=== PATIENT | male | born 1980 | race Caucasian/White ===

== ENCOUNTER 2022-02-05 15:43 | Inpatient (IN) | payer SELFPAY ==
[~2022-02-05] VITALS: Ht 162 cm; Wt 96.6 kg
[~2022-02-05 15:43] MED LIST: METO50TA2 PO
--- NOTE | 2022-02-05 15:47 | ED General ---
General Stated Complaint: RT RIB PAIN History of Present Illness Date Seen by Provider: Feb 05, 2022 Time Seen by Provider: 15:47 Initial Comments 41-year-old male presents with known influenza. Patient reports that last night he had pain in his right ribs especially with deep breath after using a spirometer. Patient went to urgent care they felt his oxygen was low and wanted him sent to the ER for further evaluation. Patient denies any fever or chills at this time. He does have some mild shortness of breath. No report of any nausea or vomiting or diarrhea at this time. He does have a lot of generalized malaise and body aches. Allergies and Home Medications Allergies Coded Allergies: No Known Drug Allergies (Unverified , 09/01/14) Patient Home Medication List Home Medication List Reviewed: Yes Metoprolol Tartrate (Metoprolol Tartrate) 50 Mg Tablet, 50 MG PO BID Prescribed by: DAYNE LIU on 09/01/14 1640 Review of Systems Review of Systems Constitutional: No fever; malaise EENTM: no symptoms reported Respiratory: see HPI, cough, short of breath Cardiovascular: see HPI; No palpitations, No syncope Gastrointestinal: No abdominal pain, No vomiting Genitourinary: no symptoms reported Musculoskeletal: see HPI Psychiatric/Neurological: No Symptoms Reported Past [id number]-[id number] Hx Past Medical History Reproductive Disorders: No Sexually Transmitted Disease: No HIV/AIDS: No Family Medical History No Pertinent Family Hx Physical Exam Vital Signs Vital Signs - First Documented 02/05/22 16:01 Temp 37.5 Pulse 114 Resp 22 B/P (MAP) 133/88 (103) Pulse Ox 95 O2 Delivery Room Air Capillary Refill : Height, Weight, BMI Height: 5'9" Weight: 170lbs. oz. 77.966975fu; BMI Method: General Appearance: No Apparent Distress, WD/WN Respiratory: No Accessory Muscle Use, No Respiratory Distress, Decreased Breath Sounds (mild decreased air movement) Cardiovascular: Normal Peripheral Pulses, Tachycardia Gastrointestinal: Non Tender, Soft Extremity: Normal Capillary Refill, Normal Inspection Neurologic/Psychiatric: Alert, Oriented x3, No Motor/Sensory Deficits, Normal Mood/Affect Skin: Normal Color, Warm/Dry Focused Exam Lactate Level 02/05/22 16:35: Lactic Acid Level 1.54 Lactic Acid Level Laboratory Tests Test 02/05/22 16:35 Lactic Acid Level 1.54 MMOL/L (0.50-2.00) Progress/Results/Core Measures Suspected Sepsis SIRS Temperature: Pulse: Respiratory Rate: Laboratory Tests 02/05/22 15:58: White Blood Count 28.0H Blood Pressure / Mean: 02/05/22 16:35: Lactic Acid Level 1.54 Laboratory Tests 02/05/22 15:58: Creatinine 0.94, Platelet Count 348, Total Bilirubin 1.0 Results/Orders Lab Results Laboratory Tests Test 02/05/22 15:58 02/05/22 16:35 Range/Units White Blood Count 28.0 H 4.3-11.0 10^3/uL Red Blood Count 5.00 4.30-5.52 10^6/uL Hemoglobin 14.8 13.3-17.7 g/dL Hematocrit 42 40-54 % Mean Corpuscular Volume 85 80-99 fL Mean Corpuscular Hemoglobin 30 25-34 pg Mean Corpuscular Hemoglobin Concent 35 32-36 g/dL Red Cell Distribution Width 12.7 10.0-14.5 % Platelet Count 348 130-400 10^3/uL Mean Platelet Volume 9.9 9.0-12.2 fL Immature Granulocyte % (Auto) 3 % Neutrophils (%) (Auto) 80 H 42-75 % Lymphocytes (%) (Auto) 12 12-44 % Monocytes (%) (Auto) 4 0-12 % Eosinophils (%) (Auto) 0 0-10 % Basophils (%) (Auto) 1 0-10 % Neutrophils # (Auto) 22.3 H 1.8-7.8 10^3/uL Lymphocytes # (Auto) 3.4 1.0-4.0 10^3/uL Monocytes # (Auto) 1.2 H 0.0-1.0 10^3/uL Eosinophils # (Auto) 0.0 0.0-0.3 10^3/uL Basophils # (Auto) 0.1 0.0-0.1 10^3/uL Immature Granulocyte # (Auto) 0.9 H 0.0-0.1 10^3/uL Neutrophils % (Manual) 80 % Lymphocytes % (Manual) 4 % Monocytes % (Manual) 16 % D-Dimer 3.38 H 0.00-0.49 UG/ML Sodium Level 127 L 135-145 MMOL/L Potassium Level 3.2 L 3.6-5.0 MMOL/L Chloride Level 88 L 98-107 MMOL/L Carbon Dioxide Level 25 21-32 MMOL/L Anion Gap 14 5-14 MMOL/L Blood Urea Nitrogen 10 7-18 MG/DL Creatinine 0.94 0.60-1.30 MG/DL Estimat Glomerular Filtration Rate 105 BUN/Creatinine Ratio 11 Glucose Level 131 H 70-105 MG/DL Calcium Level 9.2 8.5-10.1 MG/DL Corrected Calcium 9.5 8.5-10.1 MG/DL Magnesium Level 2.0 1.6-2.4 MG/DL Total Bilirubin 1.0 0.1-1.0 MG/DL Aspartate Amino Transf (AST/SGOT) 18 5-34 U/L Alanine Aminotransferase (ALT/SGPT) 12 0-55 U/L Alkaline Phosphatase 127 40-136 U/L Troponin I < 0.30 <0.30 NG/ML C-Reactive Protein 48.49 H <0.50 MG/DL Total Protein 8.1 6.4-8.2 GM/DL Albumin 3.6 3.2-4.5 GM/DL Lactic Acid Level 1.54 0.50-2.00 MMOL/L My Orders Orders - NULL,BRIE L DO Chest Pa/Lat (2 View) (02/05/22 15:51) Cbc No Diff (02/05/22 15:51) Cbc With Automated Diff (02/05/22 15:51) Magnesium (02/05/22 15:51) Crp Fs (02/05/22 15:51) Troponin I Fs (02/05/22 15:51) Ketorolac Injection (Toradol Injection) (02/05/22 15:51) Albuterol/Ipra Inhalation Soln (Duoneb I (02/05/22 16:00) Svn Small Volume Nebulizer (02/05/22 15:51) Fibrin Degradation Products (02/05/22 15:51) Manual Differential (02/05/22 15:58) Comprehensive Metabolic Panel (02/05/22 16:27) Ct Angio Chest W (02/05/22 16:28) Lactic Acid Analyzer (02/05/22 16:29) Cefepime Injection (Maxipime Injection) (02/05/22 16:30) Iohexol Injection (Omnipaque 350 Mg/Ml 1 (02/05/22 16:30) Received Contrast (Hold Metformin- Contr (02/05/22 16:30) Sodium Chloride Flush (Catheter Flush Sy (02/05/22 16:30) Ns (Ivpb) (Sodium Chloride 0.9% Ivpb Bag (02/05/22 16:30) Ns Iv 1000 Ml (Sodium Chloride 0.9%) (02/05/22 16:39) Enoxaparin Injection (Lovenox Injection) (02/05/22 17:15) Vancomycin Injection (Vancomycin Injecti (02/05/22 17:15) Ed Admission (Communication) (02/05/22 17:40) Ibuprofen Tablet (Motrin Tablet) (02/05/22 17:45) Medications Given in ED Current Medications Medications Dose Ordered Sig/Melida Route Start Time Stop Time Status Last Admin Dose Admin Albuterol/ Ipratropium 3 ml ONCE ONCE INH 02/05/22 16:00 02/05/22 16:01 DC 02/05/22 15:57 3 ML Cefepime HCl 1000 mg/Sodium Chloride 50 ml @ 100 mls/hr ONCE ONCE IV 02/05/22 16:30 02/05/22 16:59 DC 02/05/22 16:47 100 MLS/HR Enoxaparin Sodium 90 mg ONCE ONCE SC 02/05/22 17:15 02/05/22 17:16 DC 02/05/22 17:48 90 MG Ibuprofen 400 mg ONCE ONCE PO 02/05/22 17:45 02/05/22 17:46 DC 02/05/22 17:48 400 MG Iohexol 75 ml ONCE ONCE IV 02/05/22 16:30 02/05/22 16:34 DC 02/05/22 16:49 80 ML Sodium Chloride 10 ml NEEDED PRN IV 02/05/22 16:30 02/05/22 16:49 10 ML Sodium Chloride 100 ml ONCE ONCE IV 02/05/22 16:30 02/05/22 16:34 DC 02/05/22 16:49 80 ML Vancomycin HCl 1500 mg/Sodium Chloride 500 ml @ 257.5 mls/ hr ONCE ONCE IV 02/05/22 17:15 02/05/22 19:11 02/05/22 17:49 257.5 MLS/HR Vital Signs/I&O 02/05/22 02/05/22 16:01 17:12 Temp 37.5 37.5 Pulse 114 117 Resp 22 20 B/P (MAP) 133/88 (103) 144/88 Pulse Ox 95 94 O2 Delivery Room Air Room Air Capillary Refill : Progress Note : Progress Note Patient with right upper lobe pneumonia with questionable pulmonary embolism. Patient started on cefepime, we will add vancomycin. Patient is given Lovenox weight-based subcu. Patient to be admitted to [facility] ICU Dr. Sheldon with Dr. Gottlieb consult with concerns of possible empyema. Patient's vital signs are stable. He transferred via EMS. Diagnostic Imaging Diagonstic Imaging: CT Plain Films/CT/US/NM/MRI: chest Comments Date of Exam:02/05/22 CT ANGIO CHEST W PROCEDURE: CT angiography of the chest. TECHNIQUE: After intravenous administration of contrast, thin section axial CT angiography of the chest was performed. 3D MIP reconstructions were made. All CT scans use one or more of the following dose optimizing techniques: automated exposure control, MA and/or KvP adjustment based on patient size and exam type or iterative reconstruction. INDICATION: Dyspnea. COMPARISON: Chest radiograph of earlier the same day. FINDINGS: Vasculature: Suboptimal opacification of the pulmonary arteries is present. Allowing for this, there is potential filling defect in the left lower lobe segmental pulmonary artery. Thoracic aorta is normal in caliber. No aortic dissection or pseudoaneurysm. Heart and mediastinum: Visualized thyroid is normal. No supraclavicular, axillary or intra-thoracic lymphadenopathy. The heart is normal in size without pericardial effusion. Pleura: Small right pleural effusion is partially loculated. No pneumothorax. Lungs and airway: No endoluminal lesion in the trachea or central bronchi. Near total consolidation of the right upper lobe. Multifocal nodular consolidations in the periphery of the left upper lobe. Upper abdomen: Allowing for the phase of contrast, no acute abnormality in the upper abdomen is seen. Musculoskeletal: No concerning osseous lesion. IMPRESSION: 1. Suboptimal opacification of the pulmonary arteries, likely due to patient taking a deep breath/Valsalva at the time of scanning. Allowing for this, there is question of left lower lobe acute pulmonary emboli. 2. Multifocal pneumonia with near total consolidation of the right upper lobe. Advise followup PA and lateral chest radiographs in 4 weeks after appropriate medical management to ensure resolution. 3. Small right pleural effusion is partially loculated. This is likely parapneumonic in nature. Diagonstic Imaging: Xray Plain Films/CT/US/NM/MRI: chest Comments Date of Exam:02/05/22 CHEST PA/LAT (2 VIEW) Chest PA/LAT (2 view) Indication: Right rib pain. Comparison: 09/01/2014. Findings: Right upper lobe confluent consolidation. Subpleural nodular opacity in the left lung. Small right pleural effusion. Normal heart size and mediastinal contours. Impression: 1. Right upper lobe pneumonia. Advise followup PA and lateral chest radiographs in 4 weeks after appropriate medical management to ensure resolution. 2. Left upper lung zone nodular opacity could be a focus of infection. Attention on follow-up. Departure Impression Primary Impression: Pneumonia Qualified Codes: J18.9 - Pneumonia, unspecified organism Disposition: 30 STILL A PATIENT Condition: Stable Departure-Patient Inst. Referrals: DAPHNE CHOI (PCP) Primary Care Physician GORDON VILLATORO MD (Family) Primary Care Physician BRIE NULL DO Feb 05, 2022 15:47
[2022-02-05] MEDS ORDERED: KETOROLAC 30 MG/ML VIAL IVP STA (15:51)
[2022-02-05 15:58] LABS: BASOPHILS # (AUTO) 0.1 10^3/uL (0.0-0.1); BASOPHILS % (AUTO) 1 % (0-10); EOSINOPHILS % (AUTO) 0 % (0-10); HEMATOCRIT 42 % (40-54); HEMOGLOBIN 14.8 g/dL (13.3-17.7); LYMPHOCYTES # (AUTO) 3.4 10^3/uL (1.0-4.0); LYMPHOCYTES % (AUTO) 12 % (12-44); MEAN CORPUSCULAR HEMOGLOBIN 30 pg (25-34); MEAN CORPUSCULAR HGB CONC 35 g/dL (32-36); MEAN CORPUSCULAR VOLUME 85 fL (80-99); MEAN PLATELET VOLUME 9.9 fL (9.0-12.2); MONOCYTES # (AUTO) 1.2 10^3/uL (0.0-1.0); MONOCYTES % (AUTO) 4 % (0-12); NEUTROPHILS # (AUTO) 22.3 10^3/uL (1.8-7.8); NEUTROPHILS % (AUTO) 80 % (42-75); PLATELET COUNT 348 10^3/uL (130-400)
[2022-02-05] MEDS ORDERED: RT-ALBUTEROL/IPRATROPIUM 3 ML (DUONEB) VIAL INH ONE (16:00)
[2022-02-05 16:23] LABS: LYMPHOCYTES % (MANUAL) 4 %; MONOCYTES % (MANUAL) 16 %; NEUTROPHILS % (MANUAL) 80 %
[2022-02-05 16:30] LABS: ALBUMIN 3.6 GM/DL (3.2-4.5); CALCIUM 9.2 MG/DL (8.5-10.1); CREATININE SERUM 0.94 MG/DL (0.60-1.30); POTASSIUM 3.2 MMOL/L (3.6-5.0); TOTAL PROTEIN 8.1 GM/DL (6.4-8.2)
[2022-02-05] MEDS ORDERED: CATHETER FLUSH 10 ML SYR IV PRN (16:30)
[2022-02-05] MEDS ORDERED: CEFEPIME INJECTION 1,000 MG in NS (IVPB) 50 ML IV ONE (16:30)
[2022-02-05] MEDS ORDERED: NS 100 ML (IVPB) BAG IV ONE (16:30)
[2022-02-05] MEDS ORDERED: HOLD METFORMIN - RECEIVED CONTRAST 20 ML VIAL IV SCH (16:30)
[2022-02-05] MEDS ORDERED: IOHEXOL 350 MG/ML 100 ML (OMNIPAQUE 350) VIAL IV ONE (16:30)
--- NOTE | 2022-02-05 16:32 | Diagnostic Imaging Report ---
Chest PA/LAT (2 view) Indication: Right rib pain. Comparison: 09/01/2014. Findings: Right upper lobe confluent consolidation. Subpleural nodular opacity in the left lung. Small right pleural effusion. Normal heart size and mediastinal contours. Impression: 1. Right upper lobe pneumonia. Advise followup PA and lateral chest radiographs in 4 weeks after appropriate medical management to ensure resolution. 2. Left upper lung zone nodular opacity could be a focus of infection. Attention on follow-up. Dictated by: Dictated on workstation # [id number]
[2022-02-05] MEDS ORDERED: NS IV 1000 ML 1,000 ML IV STA ×2 (16:39→18:00)
--- NOTE | 2022-02-05 16:59 | Diagnostic Imaging Report ---
PROCEDURE: CT angiography of the chest. TECHNIQUE: After intravenous administration of contrast, thin section axial CT angiography of the chest was performed. 3D MIP reconstructions were made. All CT scans use one or more of the following dose optimizing techniques: automated exposure control, MA and/or KvP adjustment based on patient size and exam type or iterative reconstruction. INDICATION: Dyspnea. COMPARISON: Chest radiograph of earlier the same day. FINDINGS: Vasculature: Suboptimal opacification of the pulmonary arteries is present. Allowing for this, there is potential filling defect in the left lower lobe segmental pulmonary artery. Thoracic aorta is normal in caliber. No aortic dissection or pseudoaneurysm. Heart and mediastinum: Visualized thyroid is normal. No supraclavicular, axillary or intra-thoracic lymphadenopathy. The heart is normal in size without pericardial effusion. Pleura: Small right pleural effusion is partially loculated. No pneumothorax. Lungs and airway: No endoluminal lesion in the trachea or central bronchi. Near total consolidation of the right upper lobe. Multifocal nodular consolidations in the periphery of the left upper lobe. Upper abdomen: Allowing for the phase of contrast, no acute abnormality in the upper abdomen is seen. Musculoskeletal: No concerning osseous lesion. IMPRESSION: 1. Suboptimal opacification of the pulmonary arteries, likely due to patient taking a deep breath/Valsalva at the time of scanning. Allowing for this, there is question of left lower lobe acute pulmonary emboli. 2. Multifocal pneumonia with near total consolidation of the right upper lobe. Advise followup PA and lateral chest radiographs in 4 weeks after appropriate medical management to ensure resolution. 3. Small right pleural effusion is partially loculated. This is likely parapneumonic in nature. Dictated by: Dictated on workstation # [id number]
[2022-02-05] MEDS ORDERED: VANCOMYCIN INJECTION 1,500 MG in NS IV 500 ML 500 ML IV ONE (17:15)
[2022-02-05] MEDS ORDERED: ENOXAPARIN 100 MG/1 ML (LOVENOX) SYR SC ONE (17:15)
[2022-02-05] MEDS ORDERED: IBUPROFEN TABLET 200 MG TAB PO ONE (17:45)
[2022-02-05 20:30] VITALS: BP 144/88
[2022-02-05] MEDS ORDERED: MELATONIN 3 MG TABLET PO PRN (20:30)
[2022-02-05] MEDS ORDERED: BISACODYL 10 MG SUPP (DULCOLAX) PR PRN (20:30)
[2022-02-05] MEDS ORDERED: diphenhydrAMINE 50 MG/ML INJ (BENADRYL) IVP PRN (20:30)
[2022-02-05] MEDS ORDERED: VANCOMYCIN INJECTION 0.1 MG in NS (IVPB) 250 ML IV SCH (20:30)
[2022-02-05] MEDS ORDERED: NS IV 500 ML 500 ML IV PRN (20:30)
[2022-02-05] MEDS ORDERED: diphenhydrAMINE 25 MG TAB (BENADRYL) PO PRN (20:30)
[2022-02-05] MEDS ORDERED: ONDANSETRON 4 MG/2 ML (SDV) Z0FRAN IV PRN (20:30)
[2022-02-05] MEDS ORDERED: polyethylene glycoL POWDER 17 GM (MIRALAX) PACK PO PRN (20:30)
[2022-02-05] MEDS ORDERED: morphine INJ 4 MG/ML 1 ML (VIAL/SYRINGE) IV PRN (20:30)
[2022-02-05] MEDS ORDERED: ENOXAPARIN 40 MG/0.4 ML (LOVENOX) SYR SC SCH (20:30)
[2022-02-05] MEDS ORDERED: ANTACID SUSP 30 ML UDC (MYLANTA) PO PRN (20:30)
[2022-02-05] MEDS ORDERED: ONDANSETRON 4 MG (ZOFRAN) ORAL DISSOLVE TAB PO PRN (20:30)
[2022-02-05] MEDS: DOCUSATE SODIUM 100 MG (COLACE) CAP PO SCH (20:37)
--- NOTE | 2022-02-05 21:23 | Tele-ICU Progress Note ---
Progress Note 41M with flu admitted with pneumonia, possible empyema and questionable PE. CTA completed with complete consolidation of RUL and possible loculated effusion. Possible PE but suboptimal exam secondary to inspiratory effort. Has been initiated on cefepime and vano for pneumonia. Therapuetic lovenox for possible PE. On my review of the CT, there does not appear to be an adequate fluid sample for either diagnostic or therapuetic drainage at this time. Focused Exam Lactate Level 02/05/22 16:35: Lactic Acid Level 1.54 02/05/22 20:39: Lactic Acid Level 1.10 Height, Weight, BMI Height: 5'9" Weight: 170lbs. oz. 77.533098tv; 35.39 BMI Method: Lactic Acid Level Laboratory Tests Test 02/05/22 20:39 Lactic Acid Level 1.10 MMOL/L (0.50-2.00) GEN LIMA MD Feb 05, 2022 21:23
[2022-02-05] MEDS ORDERED: VANCOMYCIN 500 MG/NS 100 ML IV ONE ×2 (23:00)
[2022-02-06] MEDS: CEFEPIME INJECTION 1,000 MG in NS (IVPB) 50 ML IV SCH ×5 (01:07→23:17)
[2022-02-06 04:31] LABS: BASOPHILS # (AUTO) 0.1 10^3/uL (0.0-0.1); BASOPHILS % (AUTO) 1 % (0-10); EOSINOPHILS % (AUTO) 0 % (0-10); HEMATOCRIT 37 % (40-54); HEMOGLOBIN 12.7 g/dL (13.3-17.7); LYMPHOCYTES # (AUTO) 1.3 10^3/uL (1.0-4.0); LYMPHOCYTES % (AUTO) 5 % (12-44); MEAN CORPUSCULAR HEMOGLOBIN 30 pg (25-34); MEAN CORPUSCULAR HGB CONC 34 g/dL (32-36); MEAN CORPUSCULAR VOLUME 86 fL (80-99); MEAN PLATELET VOLUME 9.9 fL (9.0-12.2); MONOCYTES # (AUTO) 2.7 10^3/uL (0.0-1.0); MONOCYTES % (AUTO) 11 % (0-12); NEUTROPHILS # (AUTO) 19.6 10^3/uL (1.8-7.8); NEUTROPHILS % (AUTO) 79 % (42-75); PLATELET COUNT 335 10^3/uL (130-400)
[2022-02-06 04:53] LABS: BILIRUBIN,TOTAL 1.1 MG/DL (0.1-1.0); CALCIUM 8.7 MG/DL (8.5-10.1); CREATININE SERUM 0.82 MG/DL (0.60-1.30); MAGNESIUM 1.9 MG/DL (1.6-2.4); PHOSPHORUS 2.1 MG/DL (2.3-4.7); POTASSIUM 3.4 MMOL/L (3.6-5.0); TOTAL PROTEIN 6.5 GM/DL (6.4-8.2)
[2022-02-06] MEDS: KCL 20 MEQ TAB (K-DUR) PO SCH (05:08)
[2022-02-06] MEDS ORDERED: KCL 20 MEQ TAB (K-DUR) PO ONE (05:15)
[2022-02-06] MEDS: NS IV 1000 ML 1,000 ML IV SCH ×3 (05:24→17:47)
[2022-02-06 05:43] LABS: ABG BASE EXCESS -3.1 MMOL/L (-2.5-2.5); ABG OXYGEN SATURATION 94 % (94-100); ABG PCO2 30 MMHG (35-45); ABG PH 7.44 (7.37-7.43); ABG PO2 61 MMHG (79-93); ABG TCO2 21.4 MMOL/L (21.0-31.0); ALLENS TEST YES-POS; INSPIRED O2 2L; PATIENT TEMP 36.6; VENTILATOR NO
[2022-02-06] MEDS ORDERED: POTASSIUM CL 10MEQ/50ML IVPB 50 ML IV SCH (06:00)
[2022-02-06] MEDS ORDERED: MAGNESIUM 1 GM/100 ML IVPB 100 ML IV SCH (06:00)
[2022-02-06] MEDS ORDERED: METO100T12 PO ×2 (08:11→11:48)
[2022-02-06] MEDS ORDERED: VANCOMYCIN INJECTION 0.1 MG in NS (IVPB) 250 ML IV SCH (09:00)
--- NOTE | 2022-02-06 09:21 | Tele-ICU Progress Note ---
Subjective Date Seen by a Provider: Feb 06, 2022 Time Seen by a Provider: 09:21 Subjective/Events-last exam (Tele-ICU Physician , consultation) Available chart/ vitals / labs / Images reviewed H&P is from ER notes Patient's information available about PMH, allergy reviewed in EMR. ROS as per chart and RN report Video assessment done using teleICU camera, rest of exam as per RN Discussed with RN. Is a 41-year-old male with past medical history of for hypertension under pneumonia in the remote past admitted with shortness of breath right-sided rib pain and racing heart. He is evaluated in the emergency room with a CT angiogram of the chest which is somewhat suboptimal however it showed ques tionable left lower lobe pulmonary embolus, right upper lobe dense consolidation. Patient recently tested positive for influenza on 02/02/2022 but it is not clear whether he is started on Tamiflu or not. At this time it is too late to start on Tamiflu. Currently he is being treated with vancomycin and cefepime. I have added doxycycline to cover atypical organisms. Impression 1. Influenza infection 2. Right upper lobe pneumonia. We need to consider both gram-negative's as well as Staph aureus infection in addition to atypicals. 3. Possible pulmonary embolism 4. Tachycardia and hypertension. Recommendations 1. Continue cefepime and vancomycin. 2. We will check a PCR for MRSA with nasal swab 3. Start on her doxycycline 100 mg IV piggyback twice a day 4. Suggest full dose anticoagulation and suggest to get a venous Dopplers of the legs. 5. Continue his beta-westley and see the response. Sepsis Event Evaluation Height, Weight, BMI Height: 5'9" Weight: 170lbs. oz. 77.417759lb; 35.39 BMI Method: Focused Exam Lactate Level 02/05/22 16:35: Lactic Acid Level 1.54 02/05/22 20:39: Lactic Acid Level 1.10 Exam Exam Patient acknowledged, consented, and participated in this virtual visit which was conducted using real time audio/video Vital Signs Date Time Temp Pulse Resp B/P (MAP) Pulse Ox O2 Delivery O2 Flow Rate FiO2 02/06/22 08:00 36.8 02/06/22 07:46 142 02/06/22 06:00 117 23 144/87 (106) 93 Nasal Cannula 2.00 02/06/22 05:00 111 23 140/91 (107) 93 Nasal Cannula 2.00 02/06/22 04:00 95 23 138/88 (105) 94 Nasal Cannula 2.00 02/06/22 04:00 95 Nasal Cannula 2.00 02/06/22 03:00 101 22 124/84 (97) 93 Nasal Cannula 2.00 02/06/22 02:00 99 19 130/77 (94) 96 Nasal Cannula 2.00 02/06/22 01:05 Nasal Cannula 2.00 02/06/22 01:00 94 02/06/22 01:00 96 17 120/84 (96) 96 Room Air 02/06/22 00:16 36.8 104 24 121/76 (91) 94 Room Air 02/06/22 00:00 98 26 93 Room Air 02/05/22 23:30 93 Room Air 02/05/22 23:00 102 19 121/76 (91) 92 Room Air 02/05/22 21:45 112 27 93 Room Air 02/05/22 21:31 114 02/05/22 21:15 130 23 94 Room Air 02/05/22 20:45 112 95 Room Air 02/05/22 20:30 112 93 Room Air 02/05/22 20:30 114 95 21 02/05/22 20:16 95 Room Air 02/05/22 20:15 118 131/86 (101) 94 Room Air 02/05/22 20:01 36.6 115 28 131/84 (100) 95 Room Air 02/05/22 17:12 37.5 117 20 144/88 94 Room Air 02/05/22 16:01 37.5 114 22 133/88 (103) 95 Room Air I & O 02/06/22 07:00 Intake Total 3550 ml Output Total 900 ml Balance 2650 ml Height & Weight Height: 5'9" Weight: 170lbs. oz. 77.370300xk; 35.39 BMI Method: General Appearance: No Apparent Distress, WD/WN Respiratory: No Accessory Muscle Use, No Respiratory Distress, Decreased Breath Sounds (mild decreased air movement) Cardiovascular: Normal Peripheral Pulses, Tachycardia Capillary Refill: Less Than 3 Seconds Extremity: Normal Capillary Refill, Normal Inspection Neurologic/Psychiatric: Alert, Oriented x3, No Motor/Sensory Deficits, Normal Mood/Affect Skin: Normal Color, Warm/Dry Results Lab Laboratory Tests 12/4/22 15:58 02/06/22 04:15 Assessment/Plan Assessment/Plan ABOVE Critical Care: Critically Ill Patient Time spent with patient (mins): 25 CHETNA CRUZ MD Feb 06, 2022 09:21
[2022-02-06] MEDS: DOXYCYCLINE INJECTION 100 MG in NS (IVPB) 100 ML IV SCH ×2 (09:38→20:29)
[2022-02-06] MEDS: DOCUSATE SODIUM 100 MG (COLACE) CAP PO SCH ×2 (09:38→19:30)
[2022-02-06] MEDS: VANCOMYCIN 1500 MG/NS 500 ML IVPB IV SCH ×4 (09:54→18:44)
[2022-02-06] MEDS: ENOXAPARIN 100 MG/1 ML (LOVENOX) SYR SC SCH ×2 (11:24→23:17)
[2022-02-06] MEDS: ALPRAZolam 0.5 MG (XANAX) TAB PO PRN (11:33)
[2022-02-06] MEDS ORDERED: ACET-2267 PO (11:46)
[2022-02-06] MEDS ORDERED: IBUP-2473 PO (11:46)
[2022-02-06] MEDS ORDERED: NON-FORMULARY MEDICATION 1 EA EA (Metoprolol Tartrate 100 MG) PO SCH (12:45)
[2022-02-06] MEDS: meTOprolol TARTRATE 50 MG (LOPRESSOR) TAB PO SCH ×2 (13:03→19:30)
--- NOTE | 2022-02-06 13:34 | History & Physical ---
KIZZY CLARKE 02/06/22 1334: HPI History of Present Illness: 41 yo M with known influenza admitted on 02/05 for pneumonia, empyema and possible PE after an ER visit for shortness of breath and right sided rib pain with inspiration the day prior. He says that tested positive for influenza on 02/02 though he began feeling sick on 01/26. Today he reports decreased SOB describing "deeper,slower breaths" but notes his breathing is not entirely back to normal. He continues to have right sided lower rib pain at the tail end of inspiration but to a lesser degree than yesterday. He complains of anxiety and restless that he attributes to a "racing heart rate" and believes his current metoprolol dose to be lower than his at home dose. Otherwise no complaints at this time. He denies chest pain, dizziness or GI disturbances. Other pertinent medical history includes bilateral pneumonia 15 years ago and hypertension. Attending Physician Cassidy Lee PCP Admitting Physician: Freda Miller MD Attending Physician: Felipe Louise MD Consult Date of Admission Feb 05, 2022 at 19:58 Home Medications Home Medications Metoprolol Tartrate 50 mg bid. Reviewed patient Home Medication Reconciliation performed by pharmacy medication reconciliations industrial ecology technician and/or nursing. Patients Allergies have been reviewed. Allergies Coded Allergies: No Known Drug Allergies (Unverified , 09/01/14) [id number] Hx Patient Social History Marrital Status: Alcohol Use?: No Have you traveled recently?: No Immunizations Up To Date Influenza Vaccine Up-to-Date: No; Not Current Family Medical History Significant Family History: No Pertinent Family Hx Review of Systems ([facility]) Respiratory: short of breath (mild) Genitourinary: no symptoms reported Musculoskeletal: no symptoms reported Psychiatric/Neurological: No Symptoms Reported Reviewed Test Results Reviewed Test Results Lab D-dimer: 3.38 on 02/05 15:58 WBC: 28 on 15:58 02/05, 25 on :02/06 ABG: ph 7.44, HCO3 21 L, PO2 61, base excess of - 3.1 on 02/06 Radiology CXR 02/05/2022 15:51 1. Right upper lobe pneumonia 2. Left upper lung zone nodular opacity CTA 02/05/2022 16:28 1. Suboptimal opacification of the pulmonary arteries likely due to patient taking a deep breath/Valsalva at the time of scanning. - There is a question of left lower lobe acute pulmonary emboli. 2. Multifocal pneumonia with near total consolidation of the right upper lobe. 3. Right pleural effusion. Physical Exam-([facility]) Physical Exam Vital Signs VS - Last 72 Hours, by Label 02/05/22 02/05/22 02/05/22 02/05/22 16:01 17:12 20:01 20:15 Temp 37.5 37.5 36.6 Pulse 114 117 115 118 Resp 22 20 28 B/P (MAP) 133/88 (103) 144/88 131/84 (100) 131/86 (101) Pulse Ox 95 94 95 94 O2 Delivery Room Air Room Air Room Air Room Air 02/05/22 02/05/22 02/05/22 02/05/22 20:16 20:30 20:30 20:45 Pulse 114 112 112 B/P (MAP) Pulse Ox 95 95 93 95 O2 Delivery Room Air Room Air Room Air FiO2 21 02/05/22 02/05/22 02/05/22 02/05/22 21:15 21:31 21:45 23:00 Pulse 130 114 112 102 Resp 27 19 B/P (MAP) 121/76 (91) Pulse Ox 94 93 92 O2 Delivery Room Air Room Air Room Air 02/05/22 02/06/22 02/06/22 02/06/22 23:30 00:00 00:16 01:00 Temp 36.8 Pulse 98 104 96 Resp 24 17 B/P (MAP) 121/76 (91) 120/84 (96) Pulse Ox 93 93 94 96 O2 Delivery Room Air Room Air Room Air Room Air 02/06/22 02/06/22 02/06/22 02/06/22 01:00 01:05 02:00 03:00 Pulse 94 99 101 Resp 22 B/P (MAP) 130/77 (94) 124/84 (97) Pulse Ox 96 93 O2 Delivery Nasal Cannula Nasal Cannula Nasal Cannula O2 Flow Rate 2.00 2.00 2.00 02/06/22 02/06/22 02/06/22 02/06/22 04:00 04:00 05:00 06:00 Pulse 95 111 117 Resp 23 B/P (MAP) 138/88 (105) 140/91 (107) 144/87 (106) Pulse Ox 95 94 93 93 O2 Delivery Nasal Cannula Nasal Cannula Nasal Cannula Nasal Cannula O2 Flow Rate 2.00 2.00 2.00 2.00 02/06/22 02/06/22 02/06/22 02/06/22 07:00 07:46 08:00 08:00 Temp 36.8 Pulse 102 142 B/P (MAP) 142/87 (105) Pulse Ox 90 94 O2 Delivery Nasal Cannula Nasal Cannula O2 Flow Rate 2.00 2.00 02/06/22 02/06/22 02/06/22 02/06/22 08:00 09:00 10:00 11:00 Pulse 122 122 105 103 Resp 37 24 33 B/P (MAP) 135/86 (102) 150/86 (107) 128/80 (96) 122/77 (92) Pulse Ox 93 93 90 93 O2 Delivery Nasal Cannula Nasal Cannula Nasal Cannula Nasal Cannula O2 Flow Rate 2.00 2.00 2.00 2.00 02/06/22 02/06/22 02/06/22 02/06/22 11:55 12:00 12:00 13:00 Temp 37.0 Pulse 105 97 Resp 27 36 B/P (MAP) 118/84 (95) 116/71 (86) Pulse Ox 95 94 93 O2 Delivery Nasal Cannula Nasal Cannula Nasal Cannula O2 Flow Rate 2.00 2.00 2.00 02/06/22 02/06/22 02/06/22 02/06/22 13:30 14:01 15:00 15:01 Pulse 96 105 101 101 Resp 9 20 20 B/P (MAP) 127/80 (96) 131/80 (97) 131/80 (97) Pulse Ox 95 95 95 O2 Delivery Nasal Cannula Nasal Cannula Nasal Cannula O2 Flow Rate 2.00 2.00 2.00 02/06/22 02/06/22 02/06/22 02/06/22 16:00 16:00 16:00 17:01 Temp 38.0 38.0 Pulse 108 108 Resp 26 26 B/P (MAP) 128/81 (97) 128/81 (97) Pulse Ox 94 91 91 O2 Delivery Nasal Cannula Nasal Cannula Nasal Cannula O2 Flow Rate 2.00 2.00 2.00 2.00 02/06/22 02/06/22 02/06/225/22 18:00 19:00 19:34 19:56 Temp 38.0 38.4 38.4 Pulse 108 109 Resp 26 18 B/P (MAP) 128/81 (97) 145/80 (101) Pulse Ox 91 93 94 O2 Delivery Nasal Cannula Nasal Cannula Nasal Cannula O2 Flow Rate 2.00 2.00 2.00 2.00 02/06/22 20:39 Temp 36.6 Capillary Refill : Less Than 3 Seconds General Appearance: mild distress Neck: normal inspection Respiratory: chest non-tender, lungs clear, no accessory muscle use Cardiovascular: regular rate, rhythm Peripheral Pulses: 3+ Radial Pulses (R) Gastrointestinal: normal bowel sounds, non tender Assessment/Plan Assessment/Plan Admission Dx 1. Pneumonia - multifocal with complete consolidation of the RUL 2. Right pleural effusion 3. Elevated d-dimer 4. Hypertension Assessment & Plan 1. Pneumonia - multifocal with complete consolidation of the RUL - vancomycin HCl 1,500 mg/Sodium Chloride - cefipime HCl 1,000 mg/sodium chloride - 2 L oxygen by nasal canula - albuterol/ipratropium 3 ml IV - Advise followup chest 4 XR (PA and lateral) 4 weeks after resolution 2. Right pleural effusion - consider thoracentesis pending surgical consultation 3. Elevated d-dimer - PE treatment dose pf enoxaparin (90 mg) per d-dimer (3.38) of and CTA findings 4. Hypertension - metoprolol tartrate 100 mg bid FELIPE LOUISE MD 02/06/22 2109: HPI History of Present Illness: Time Seen by Provider: 10:40 Home Medications Allergies Coded Allergies: No Known Drug Allergies (Unverified , 09/01/14) Review of Systems ([facility]) Constitutional: malaise Physical Exam-([facility]) Physical Exam General Appearance: WD/WN, no apparent distress Respiratory: lungs clear, no accessory muscle use Cardiovascular: regular rate, rhythm, no murmur Extremities: no pedal edema Neurologic/Psychiatric: alert, normal mood/affect Skin: warm/dry Assessment/Plan Assessment/Plan Admission Status: Inpatient Order (span 2 midnights) Reason for Inpatient Admission: Severe pneumonia with possible empyema will require 48 hours or more of IV antibiotics Supervisory-Addendum Brief Verification & Attestation Participated in pt care: history, MDM, physical Personally performed: exam, history, MDM, supervision of care Care discussed with: Medical Student Procedures: n/a I personally saw and examined patient and did my own history and exam, see my exam findings for my PE. I directed the plan of care as documented. Will treat for PE given possible LL PE on CTA and elevated D dimer with risk due to severe pneumonia. KIZZY CLARKE Feb 06, 2022 13:34 FELIPE LOUISE MD Feb 06, 2022 21:09
[2022-02-06 14:06] LABS: BILIRUBIN,URINE NEGATIVE (NEGATIVE); CLARITY,URINE CLOUDY; COLOR,URINE DARK YELLOW; GLUCOSE, URINE (UA) NEGATIVE (NEGATIVE); KETONES,URINE TRACE (NEGATIVE); LEUKOCYTE ESTERASE ,URINE NEGATIVE (NEGATIVE); NITRITE,URINE NEGATIVE (NEGATIVE); PH,URINE 6.5 (5-9); PROTEIN,URINE 2+ (NEGATIVE)
[2022-02-06 14:17] LABS: AMORPHOUS SEDIMENT,UR MOD AMOR URATES /LPF; BACTERIA,URINE LARGE /HPF; YEAST,URINE MODERATE /HPF
[2022-02-06] MEDS ORDERED: POTASSIUM PHOSPHATE INJ 30 MM in NS (IVPB) 250 ML IV NR (15:00)
[2022-02-06] MEDS: ACETAMINOPHEN 325 MG TABLET PO PRN (19:34)
[2022-02-06] MEDS: RT-ALBUTEROL/IPRATROPIUM 3 ML (DUONEB) VIAL INH PRN (19:56)
--- NOTE | 2022-02-06 21:06 | CONSULTATION REPORT ---
DATE OF SERVICE: 02/06/2022 ADMITTING AGILE TEST LEAD: RICARDA June ADMITTING PHYSICIAN: Lisa Brantley MD HISTORY OF PRESENT ILLNESS: The patient is a 41-year-old male with known history of influenza for approximately the past 2 weeks. He has been treating herself at home; however, states that he felt worse over time with increased shortness of breath. His flu symptoms encompassed headache, nausea and vomiting as well as shortness of breath. He also has had a productive cough as well. He developed worsening shortness of breath and was seen at [place] [facility] and then transferred to [facility] where he was found to have an elevated D-dimer and a CT angiography was performed, which showed a questionable left lower lobe acute pulmonary emboli. There was also a significant right sided pneumonia as well as a small pleural effusion. He did not report any lower extremity pain or swelling that would indicate a deep vein thrombosis. He is currently on therapeutic b.i.d. dosing of Lovenox. He is also eating well and having normal bowel movements. PAST MEDICAL HISTORY: Hypertension. PAST SURGICAL HISTORY: None. ALLERGIES: No known drug allergies. MEDICATIONS: Metoprolol 100 mg b.i.d. SOCIAL HISTORY: Negative smoking, negative alcohol. FAMILY HISTORY: Father myocardial infarction, age 54. VITAL SIGNS: Temperature 38.4, blood pressure 128/81, pulse 108, respirations 26, pulse ox 94% on 2 liters nasal cannula. REVIEW OF SYSTEMS: Well-nourished male, currently in no acute distress. He is not experiencing any shortness of breath or difficulty breathing. No chest pain, palpitations, diaphoresis. No nausea, vomiting, no diarrhea, constipation, no red blood per rectum, no dark tarry stools. He is having a productive cough, which is greenish and he states that there are small flecks of blood on occasion. No fever, chills, no recent interval or weight loss. All other review of systems negative. PHYSICAL EXAMINATION: CHEST: Decreased breath sounds as well as scattered rhonchi in right lung. HEART: Regular, no murmurs. EXTREMITIES: No lower extremity edema. Negative Homans sign. HEENT: No scleral icterus. No cervical lymphadenopathy. ABDOMEN: Soft, nontender, nondistended. SKIN: Warm and dry. LABORATORY DATA: WBC 25.0, hemoglobin 12.7, hematocrit 37, platelets 335. BUN 10, creatinine 0.82. ASSESSMENT AND PLAN: A 41-year-old male with right sided pneumonia with questionable pulmonary embolism. He is being treated empirically for the pulmonary embolism with a therapeutic dose of Lovenox b.i.d., which we do recommend. Once he is off the Lovenox, we would just recommend an aspirin 81 mg daily. If he does have persistent symptoms of shortness of breath, our recommendation would then be to repeat the spiral CT angiography as well as bilateral lower extremity ultrasonography to see if a thromboembolic event was the culprit. For now, we would recommend continued respiratory management as well as IV antibiotics. There is a very small pleural effusion; however, this is not large enough to drain. Job ID: [id number] DocumentID: [id number] Dictated Date: 02/06/2022 20:31:41 Events Associate Date: 02/06/2022 21:04:00 Dictated By: LORRI CLARK MD
[2022-02-07] MEDS: NS IV 1000 ML 1,000 ML IV SCH ×3 (02:10→16:33)
[2022-02-07] MEDS: ACETAMINOPHEN 325 MG TABLET PO PRN ×2 (04:09→16:51)
[2022-02-07] MEDS ORDERED: TROUGH ORDER-PHARMACY XX ONE (05:00)
[2022-02-07] MEDS: CEFEPIME INJECTION 1,000 MG in NS (IVPB) 50 ML IV SCH ×4 (05:02→23:09)
[2022-02-07] MEDS: RT-ALBUTEROL/IPRATROPIUM 3 ML (DUONEB) VIAL INH PRN ×2 (05:28→10:02)
[2022-02-07 06:01] LABS: BASOPHILS # (AUTO) 0.1 10^3/uL (0.0-0.1); BASOPHILS % (AUTO) 1 % (0-10); EOSINOPHILS # (AUTO) 0.1 10^3/uL (0.0-0.3); EOSINOPHILS % (AUTO) 0 % (0-10); HEMATOCRIT 34 % (40-54); HEMOGLOBIN 11.6 g/dL (13.3-17.7); LYMPHOCYTES # (AUTO) 1.3 10^3/uL (1.0-4.0); LYMPHOCYTES % (AUTO) 5 % (12-44); MEAN CORPUSCULAR HEMOGLOBIN 30 pg (25-34); MEAN CORPUSCULAR HGB CONC 34 g/dL (32-36); MEAN CORPUSCULAR VOLUME 87 fL (80-99); MONOCYTES # (AUTO) 2.6 10^3/uL (0.0-1.0); MONOCYTES % (AUTO) 11 % (0-12); NEUTROPHILS # (AUTO) 17.6 10^3/uL (1.8-7.8); NEUTROPHILS % (AUTO) 72 % (42-75); PLATELET COUNT 382 10^3/uL (130-400); WHITE BLOOD COUNT 24.4 10^3/uL (4.3-11.0)
[2022-02-07 06:12] LABS: ALBUMIN 2.7 GM/DL (3.2-4.5); POTASSIUM 3.2 MMOL/L (3.6-5.0)
[2022-02-07 06:13] LABS: CALCIUM 8.1 MG/DL (8.5-10.1)
[2022-02-07 06:16] LABS: BILIRUBIN,TOTAL 0.9 MG/DL (0.1-1.0)
[2022-02-07] MEDS: KCL 20 MEQ TAB (K-DUR) PO SCH (06:17)
[2022-02-07 06:18] LABS: CREATININE SERUM 0.82 MG/DL (0.60-1.30)
[2022-02-07 06:20] LABS: MAGNESIUM 1.8 MG/DL (1.6-2.4)
[2022-02-07 06:27] LABS: VANCOMYCIN,TROUGH 12.5 UG/ML (10.0-20.0)
[2022-02-07] MEDS: VANCOMYCIN 1500 MG/NS 500 ML IVPB IV SCH ×4 (06:30→19:38)
[2022-02-07 08:17] VITALS: BP 128/72
[2022-02-07] MEDS: DOCUSATE SODIUM 100 MG (COLACE) CAP PO SCH ×2 (08:59→20:11)
[2022-02-07] MEDS ORDERED: KCL 20 MEQ TAB (K-DUR) PO ONE ×2 (09:00→11:00)
[2022-02-07] MEDS: DOXYCYCLINE INJECTION 100 MG in NS (IVPB) 100 ML IV SCH ×2 (09:04→20:11)
[2022-02-07] MEDS: meTOprolol TARTRATE 50 MG (LOPRESSOR) TAB PO SCH ×2 (09:04→20:11)
[2022-02-07] MEDS ORDERED: KCL 20 MEQ TAB (K-DUR) PO NR (09:30)
[2022-02-07] MEDS ORDERED: POTASSIUM PHOSPHATE INJ 30 MM in NS (IVPB) 250 ML IV ONE (09:30)
[2022-02-07 11:08] VITALS: BP 133/77
[2022-02-07] MEDS: ENOXAPARIN 100 MG/1 ML (LOVENOX) SYR SC SCH ×2 (12:14→23:09)
[2022-02-07 15:47] VITALS: BP 138/80
[2022-02-07 20:06] VITALS: BP 137/75
--- NOTE | 2022-02-07 21:06 | Progress Note ---
Subjective Subjective/Events-last exam Febrile to 38.6 max in last 24 hours. Pt seen at about 1400. States his breathing continues to feel better. Has some pain in esophageal area with swallowing, he relates to vomiting prior to admission. Focused Exam Lactate Level 02/05/22 16:35: Lactic Acid Level 1.54 02/05/22 20:39: Lactic Acid Level 1.10 Objective Exam Last Set of Vital Signs Vital Signs Date Time Temp Pulse Resp B/P (MAP) Pulse Ox O2 Delivery O2 Flow Rate FiO2 02/07/22 20:10 Nasal Cannula 2.00 02/07/22 20:06 37.0 94 02/07/22 20:06 22 137/75 (95) 94 02/05/22 20:30 21 Capillary Refill : Less Than 3 Seconds I&O Intake and Output 02/07/22 00:00 Intake Total 3804 ml Output Total 1200 ml Balance 2604 ml Intake Oral 2454 ml IV Total 1350 ml Output Urine Total 1200 ml # Voids 5 # Bowel Movements 3 General: Alert, No Acute Distress Lungs: Clear to Auscultation, Normal Air Movement Heart: Regular Rate, No Murmurs Neuro: Normal Speech Psych/Mental Status: Mood NL Results/Procedures Lab Laboratory Tests 02/07/22 05:12: White Blood Count 24.4H, Red Blood Count 3.92L, Hemoglobin 11.6L, Hematocrit 34L , Mean Corpuscular Volume 87, Mean Corpuscular Hemoglobin 30, Mean Corpuscular Hemoglobin Concent 34, Red Cell Distribution Width 13.2, Platelet Count 382, Mean Platelet Volume 10.0, Immature Granulocyte % (Auto) 11, Neutrophils (%) (Auto) 72, Lymphocytes (%) (Auto) 5L, Monocytes (%) (Auto) 11, Eosinophils (%) (Auto) 0, Basophils (%) (Auto) 1, Neutrophils # (Auto) 17.6H, Lymphocytes # (Auto) 1.3, Monocytes # (Auto) 2.6H, Eosinophils # (Auto) 0.1, Basophils # (Auto) 0.1, Immature Granulocyte # (Auto) 2.6H, Sodium Level 132L, Potassium Level 3.2L, Chloride Level 105, Carbon Dioxide Level 18L, Anion Gap 9, Blood Urea Nitrogen 10, Creatinine 0.82, Estimat Glomerular Filtration Rate 114, BUN/Creatinine Ratio 12, Glucose Level 106H, Calcium Level 8.1L, Corrected Calcium 9.1, Phosphorus Level 2.0L, Magnesium Level 1.8, Total Bilirubin 0.9, Aspartate Amino Transf (AST/SGOT) 43H, Alanine Aminotransferase (ALT/SGPT) 22, Alkaline Phosphatase 112, Total Protein 6.0L, Albumin 2.7L, Vancomycin Level Trough 12.5 Microbiology 02/06/22 Urine Culture - Final, Complete NO GROWTH 02/05/22 Blood Culture - Preliminary, Resulted No growth 02/05/22 MRSA Screen - Final, Complete MRSA not isolated Radiology CXR 02/05/2022 15:51 1. Right upper lobe pneumonia 2. Left upper lung zone nodular opacity CTA 02/05/2022 16:28 1. Suboptimal opacification of the pulmonary arteries likely due to patient taking a deep breath/Valsalva at the time of scanning. - There is a question of left lower lobe acute pulmonary emboli. 2. Multifocal pneumonia with near total consolidation of the right upper lobe. 3. Right pleural effusion. Assessment/Plan Assessment/Plan Assessment & Plan 1. Pneumonia - multifocal with complete consolidation of the RUL - vancomycin and cefepime started on admit - stable on 2 L oxygen by nasal canula - Duonebs 2. Right pleural effusion - Appreciate Surgery recommendations, not recommending thoracentesis or chest tube at this time 3. Elevated d-dimer - PE treatment dose enoxaparin due to d-dimer (3.38) of and CTA findings with possible LL PE 4. Hypertension - Home metoprolol tartrate 100 mg bid 5. Dysphagia - reportedly due to esophageal pain, suggested carafate and he does not feel he needs treatment at this time FELIPE LOUISE MD Feb 07, 2022 21:06
[2022-02-07 23:16] VITALS: BP 132/79
[2022-02-08] VITALS (7 sets, daily range): BP systolic 121–160; BP diastolic 73–93
[2022-02-08] MEDS: NS IV 1000 ML 1,000 ML IV SCH ×3 (02:00→11:39)
[2022-02-08] MEDS: ALPRAZolam 0.5 MG (XANAX) TAB PO PRN (02:03)
[2022-02-08] MEDS: ACETAMINOPHEN 325 MG TABLET PO PRN (04:14)
[2022-02-08] MEDS: CEFEPIME INJECTION 1,000 MG in NS (IVPB) 50 ML IV SCH ×3 (05:11→17:36)
[2022-02-08 05:27] LABS: BASOPHILS % (AUTO) 0 % (0-10); EOSINOPHILS # (AUTO) 0.2 10^3/uL (0.0-0.3); EOSINOPHILS % (AUTO) 1 % (0-10); HEMATOCRIT 35 % (40-54); LYMPHOCYTES # (AUTO) 1.6 10^3/uL (1.0-4.0); LYMPHOCYTES % (AUTO) 6 % (12-44); MEAN CORPUSCULAR HEMOGLOBIN 30 pg (25-34); MEAN CORPUSCULAR HGB CONC 35 g/dL (32-36); MEAN CORPUSCULAR VOLUME 87 fL (80-99); MEAN PLATELET VOLUME 9.3 fL (9.0-12.2); MONOCYTES # (AUTO) 2.6 10^3/uL (0.0-1.0); MONOCYTES % (AUTO) 10 % (0-12); NEUTROPHILS # (AUTO) 18.2 10^3/uL (1.8-7.8); NEUTROPHILS % (AUTO) 67 % (42-75); PLATELET COUNT 452 10^3/uL (130-400); WHITE BLOOD COUNT 27.2 10^3/uL (4.3-11.0)
[2022-02-08 05:32] LABS: ALBUMIN 2.8 GM/DL (3.2-4.5); POTASSIUM 3.7 MMOL/L (3.6-5.0)
[2022-02-08 05:33] LABS: CALCIUM 8.3 MG/DL (8.5-10.1)
[2022-02-08 05:34] LABS: TOTAL PROTEIN 6.4 GM/DL (6.4-8.2)
[2022-02-08 05:37] LABS: PHOSPHORUS 2.4 MG/DL (2.3-4.7)
[2022-02-08 05:38] LABS: CREATININE SERUM 0.8 MG/DL (0.60-1.30)
[2022-02-08 05:41] LABS: MAGNESIUM 1.8 MG/DL (1.6-2.4)
[2022-02-08] MEDS: KCL 20 MEQ TAB (K-DUR) PO SCH (06:16)
[2022-02-08] MEDS: VANCOMYCIN 1500 MG/NS 500 ML IVPB IV SCH ×2 (06:19)
[2022-02-08] MEDS: DOCUSATE SODIUM 100 MG (COLACE) CAP PO SCH ×2 (08:55→20:13)
[2022-02-08] MEDS: meTOprolol TARTRATE 50 MG (LOPRESSOR) TAB PO SCH ×2 (09:01→20:13)
[2022-02-08] MEDS: DOXYCYCLINE INJECTION 100 MG in NS (IVPB) 100 ML IV SCH ×2 (09:52→20:12)
--- NOTE | 2022-02-08 13:10 | Progress Note ---
Subjective Subjective/Events-last exam Afebrile (Tmax 37.9). Breathing is okay, but his stomach is bothering him, having some diarrhea. Feels a little weak. Focused Exam Lactate Level 02/05/22 16:35: Lactic Acid Level 1.54 02/05/22 20:39: Lactic Acid Level 1.10 Objective Exam Last Set of Vital Signs Vital Signs Date Time Temp Pulse Resp B/P (MAP) Pulse Ox O2 Delivery O2 Flow Rate FiO2 02/08/22 11:35 87 138/80 (99) 02/08/22 11:25 37.4 18 93 Room Air 02/07/22 20:10 2.00 02/05/22 20:30 21 Capillary Refill : Less Than 3 Seconds I&O Intake and Output 02/08/22 00:00 Intake Total 5870 ml Balance 5870 ml Intake Oral 3230 ml IV Total 2640 ml # Voids 13 # Bowel Movements 6 General: Alert, Mild Distress Lungs: Clear to Auscultation Heart: Regular Rate, No Murmurs Abdomen: Normal Bowel Sounds, Soft Extremities: No Edema Psych/Mental Status: Mood NL Results/Procedures Lab Laboratory Tests 02/08/22 05:14: White Blood Count 27.2H, Red Blood Count 3.98L, Hemoglobin 12.0L, Hematocrit 35L , Mean Corpuscular Volume 87, Mean Corpuscular Hemoglobin 30, Mean Corpuscular Hemoglobin Concent 35, Red Cell Distribution Width 13.3, Platelet Count 452H, Mean Platelet Volume 9.3, Immature Granulocyte % (Auto) 16, Neutrophils (%) (Auto) 67, Lymphocytes (%) (Auto) 6L, Monocytes (%) (Auto) 10, Eosinophils (%) (Auto) 1, Basophils (%) (Auto) 0, Neutrophils # (Auto) 18.2H, Lymphocytes # (Auto) 1.6, Monocytes # (Auto) 2.6H, Eosinophils # (Auto) 0.2, Basophils # (Auto) 0.0, Immature Granulocyte # (Auto) 4.5H, Sodium Level 133L, Potassium Level 3.7, Chloride Level 106, Carbon Dioxide Level 18L, Anion Gap 9, Blood Urea Nitrogen 8, Creatinine 0.80, Estimat Glomerular Filtration Rate 115, BUN/ Creatinine Ratio 10, Glucose Level 95, Calcium Level 8.3L, Corrected Calcium 9.3, Phosphorus Level 2.4, Magnesium Level 1.8, Total Bilirubin 1.0, Aspartate Amino Transf (AST/SGOT) 44H, Alanine Aminotransferase (ALT/SGPT) 28, Alkaline Phosphatase 95, Total Protein 6.4, Albumin 2.8L Microbiology 02/06/22 Urine Culture - Final, Complete NO GROWTH 02/05/22 Blood Culture - Preliminary, Resulted No growth 02/05/22 MRSA Screen - Final, Complete MRSA not isolated Radiology CXR 02/05/2022 15:51 1. Right upper lobe pneumonia 2. Left upper lung zone nodular opacity CTA 02/05/2022 16:28 1. Suboptimal opacification of the pulmonary arteries likely due to patient taking a deep breath/Valsalva at the time of scanning. - There is a question of left lower lobe acute pulmonary emboli. 2. Multifocal pneumonia with near total consolidation of the right upper lobe. 3. Right pleural effusion. Assessment/Plan Assessment/Plan Assessment & Plan 1. Pneumonia - multifocal with complete consolidation of the RUL - vancomycin, doxycline, cefepime started on admit - stable on 2 L oxygen by nasal canula - Duonebs - nasal MRSA swab neg, will d/c vanc. Overall improvement, will try switching to oral antibiotic and monitor clinical condition given severity of pneumonia. 2. Right pleural effusion - Appreciate Surgery recommendations, not recommending thoracentesis or chest tube at this time 3. Elevated d-dimer - PE treatment dose enoxaparin due to d-dimer (3.38) of and CTA findings with possible LL PE -02/08 changed to Xarelto 4. Hypertension - Home metoprolol tartrate 100 mg bid 5. Dysphagia - reportedly due to esophageal pain, suggested carafate and he does not feel he needs treatment at this time 6. Diarrhea/stomach upset- - suspect antibiotic related, will try probiotic FELIPE LOUISE MD Feb 08, 2022 13:10
[2022-02-08] MEDS ORDERED: ONDANSETRON 4 MG/2 ML (SDV) Z0FRAN IVP PRN (13:15)
[2022-02-08] MEDS: LACTOBACILLUS ACIDOPHILUS (PROBIOTIC) CAPSULE PO SCH (17:36)
[2022-02-08] MEDS: RIVAROXABAN 15 MG TABLET (XARELTO) PO SCH (17:37)
[2022-02-08] MEDS: CEFDINIR 300 MG (OMNICEF) CAP PO SCH (20:12)
[2022-02-08] MEDS: RT-ALBUTEROL/IPRATROPIUM 3 ML (DUONEB) VIAL INH PRN (21:09)
[2022-02-09] VITALS: BP 132/82
[2022-02-09 03:29] VITALS: BP 145/84
[2022-02-09 04:08] VITALS: BP 145/84
[2022-02-09 05:40] LABS: BASOPHILS % (AUTO) 0 % (0-10); EOSINOPHILS # (AUTO) 0.3 10^3/uL (0.0-0.3); EOSINOPHILS % (AUTO) 1 % (0-10); HEMATOCRIT 34 % (40-54); HEMOGLOBIN 11.6 g/dL (13.3-17.7); LYMPHOCYTES # (AUTO) 1.6 10^3/uL (1.0-4.0); LYMPHOCYTES % (AUTO) 7 % (12-44); MEAN CORPUSCULAR HEMOGLOBIN 30 pg (25-34); MEAN CORPUSCULAR HGB CONC 35 g/dL (32-36); MEAN CORPUSCULAR VOLUME 87 fL (80-99); MEAN PLATELET VOLUME 9.1 fL (9.0-12.2); MONOCYTES # (AUTO) 1.8 10^3/uL (0.0-1.0); MONOCYTES % (AUTO) 8 % (0-12); NEUTROPHILS # (AUTO) 15.1 10^3/uL (1.8-7.8); NEUTROPHILS % (AUTO) 65 % (42-75); PLATELET COUNT 434 10^3/uL (130-400); WHITE BLOOD COUNT 23.2 10^3/uL (4.3-11.0)
[2022-02-09 05:56] LABS: ALBUMIN 2.7 GM/DL (3.2-4.5); POTASSIUM 3.1 MMOL/L (3.6-5.0)
[2022-02-09 05:58] LABS: CALCIUM 8.2 MG/DL (8.5-10.1)
[2022-02-09 05:59] LABS: TOTAL PROTEIN 6.2 GM/DL (6.4-8.2)
[2022-02-09] MEDS: KCL 20 MEQ TAB (K-DUR) PO SCH (06:01)
[2022-02-09 06:03] LABS: CREATININE SERUM 0.79 MG/DL (0.60-1.30)
[2022-02-09 06:06] LABS: MAGNESIUM 1.8 MG/DL (1.6-2.4)
[2022-02-09] MEDS ORDERED: KCL 20 MEQ TAB (K-DUR) PO ONE ×2 (06:15→09:00)
[2022-02-09] MEDS: RIVAROXABAN 15 MG TABLET (XARELTO) PO SCH (06:43)
[2022-02-09 07:45] VITALS: BP 137/81
[2022-02-09] MEDS ORDERED: KCL 20 MEQ TAB (K-DUR) PO NR (08:00)
[2022-02-09] MEDS: RT-ALBUTEROL/IPRATROPIUM 3 ML (DUONEB) VIAL INH PRN (08:28)
[2022-02-09] MEDS: LACTOBACILLUS ACIDOPHILUS (PROBIOTIC) CAPSULE PO SCH ×2 (08:58→13:21)
[2022-02-09] MEDS: DOXYCYCLINE INJECTION 100 MG in NS (IVPB) 100 ML IV SCH (08:58)
[2022-02-09] MEDS: CEFDINIR 300 MG (OMNICEF) CAP PO SCH (08:59)
[2022-02-09] MEDS: DOCUSATE SODIUM 100 MG (COLACE) CAP PO SCH (08:59)
[2022-02-09] MEDS: meTOprolol TARTRATE 50 MG (LOPRESSOR) TAB PO SCH (08:59)
[2022-02-09] MEDS: POTASSIUM CL 10MEQ/50ML IVPB 50 ML IV SCH ×2 (09:03→09:05)
[2022-02-09 12:29] VITALS: BP 128/92
[2022-02-09] MEDS ORDERED: RIVA15TA2 PO (13:15)
[2022-02-09] MEDS ORDERED: RIVA20TA2 PO (13:15)
[2022-02-09] MEDS ORDERED: ALBU8.5H6 INH (13:15)
[2022-02-09] MEDS ORDERED: IPRA3AMP31 IH (13:15)
[2022-02-09] MEDS ORDERED: CEFD300C3 PO (13:15)
--- NOTE | 2022-02-09 13:16 | Discharge Summary ---
Discharge [facility] Discharge Medications New Medications: Albuterol Sulfate (Ventolin Hfa) 90 Mcg Hfa.aer.ad 2 PUFF INH Q4H PRN for SHORTNESS OF BREATH, #1 EA 0 Refills 1 PUFF = 90 MCG Ipratropium/Albuterol Sulfate (Iprat-Albut 0.5-3(2.5) mg/3 ml) 0.5 Mg-3 Mg (2.5 Mg Base)/3 Ml Ampul.neb 3 ML IH Q6H PRN for SHORTNESS OF BREATH, #300 ML 0 Refills Cefdinir (Cefdinir) 300 Mg Capsule 300 MG PO BID, #20 CAP 0 Refills Rivaroxaban (Xarelto Tablet) 20 Mg Tablet 20 MG PO DAILY@1700, #30 TAB 0 Refills Start on 03/02/22 Rivaroxaban (Xarelto Tablet) 15 Mg Tablet 15 MG PO BID@0700,1900, #42 TAB 0 Refills Take until 03/01/22 then change to Xarelto 20 mg daily (other prescription) Continued Medications: Acetaminophen (Tylenol Extra Strength) 500 Mg Tablet 1000 MG PO Q8H PRN for PAIN-MILD (1-4), TAB TAKES 2 (500MG) TABS Ibuprofen (Ibuprofen) 200 Mg Tablet 400 MG PO Q8H PRN for PAIN-MILD (1-4), TAB TAKES 2 (200MG) TABS Metoprolol Tartrate (Metoprolol Tartrate) 100 Mg Tablet 100 MG PO BID Patient Instructions Goal/Follow Up Appt: Follow up with primary doctor within a week of discharge. Return to The Hospital For: Fever, worsening shortness of breath, inability to keep down medications. Activity & Diet Discharge Diet: No Restrictions Activity as Tolerated: Yes FELIPE LOUISE MD Feb 09, 2022 13:16
--- NOTE | 2022-02-09 13:17 | Discharge Summary ---
Discharge Summary Hospital Course Hospital Course Date of Admission: Feb 05, 2022 at 19:58 Admission Diagnosis : Family Physician/Provider: Ronaldo Girard MD Date of Discharge: 02/09/22 Discharge Diagnosis: [ ] 1. Pneumonia - multifocal with complete consolidation of the RUL, treted with doxy, vanc and cefepime initially. MRSA nasal swab neg, changed to oral cefdinir prior to d/c and remained stable. Initially required 2 lpm supplemental oxygen but no supplemental oxygen reuqirement at rest orwith exertion on d/c. Surgery consulted, did not recommend intervention as noted below. 2. Right pleural effusion - Appreciate Surgery recommendations, not recommending thoracentesis or chest tub 3. Elevated d-dimer - PE treatment dose enoxaparin due to d-dimer (3.38) of and CTA findings with possible LL PE -02/08 changed to Xarelto 4. Hypertension - Home metoprolol tartrate 100 mg bid 5. Dysphagia - reportedly due to esophageal pain, suggested carafate and he does not feel he needs treatment at this time 6. Diarrhea/stomach upset- - suspect antibiotic related, started probiotic Hospital Course: See problem list Labs and Pending Lab Test: Laboratory Tests 02/09/22 05:30: White Blood Count 23.2H, Red Blood Count 3.87L, Hemoglobin 11.6L, Hematocrit 34L , Mean Corpuscular Volume 87, Mean Corpuscular Hemoglobin 30, Mean Corpuscular Hemoglobin Concent 35, Red Cell Distribution Width 13.4, Platelet Count 434H, Mean Platelet Volume 9.1, Immature Granulocyte % (Auto) 19, Neutrophils (%) (Auto) 65, Lymphocytes (%) (Auto) 7L, Monocytes (%) (Auto) 8, Eosinophils (%) (Auto) 1, Basophils (%) (Auto) 0, Neutrophils # (Auto) 15.1H, Lymphocytes # (Auto) 1.6, Monocytes # (Auto) 1.8H, Eosinophils # (Auto) 0.3, Basophils # (Auto) 0.0, Immature Granulocyte # (Auto) 4.3H, Sodium Level 134L, Potassium Level 3.1L, Chloride Level 104, Carbon Dioxide Level 21, Anion Gap 9, Blood Urea Nitrogen 8, Creatinine 0.79, Estimat Glomerular Filtration Rate 115, BUN/Creatinine Ratio 10, Glucose Level 98, Calcium Level 8.2L, Corrected Calcium 9.2, Phosphorus Level 3.0, Magnesium Level 1.8, Total Bilirubin 1.0, Aspartate Amino Transf (AST/SGOT) 58H, Alanine Aminotransferase (ALT/SGPT) 35, Alkaline Phosphatase 93, Total Protein 6.2L, Albumin 2.7L Microbiology 02/06/22 Urine Culture - Final, Complete NO GROWTH 02/05/22 Blood Culture - Preliminary, Resulted No growth 02/05/22 MRSA Screen - Final, Complete MRSA not isolated Home Meds Active Iprat-Albut 0.5-3(2.5) mg/3 ml (Ipratropium/Albuterol Sulfate) 0.5 Mg-3 Mg (2.5 Mg Base)/3 Ml Ampul.neb 3 Ml IH Q6H PRN Ventolin Hfa (Albuterol Sulfate) 90 Mcg Hfa.aer.ad 2 Puff INH Q4H PRN 1 PUFF = 90 MCG Xarelto Tablet (Rivaroxaban) 15 Mg Tablet 15 Mg PO BID@0700,1900 Take until 03/01/22 then change to Xarelto 20 mg daily (other prescription) Xarelto Tablet (Rivaroxaban) 20 Mg Tablet 20 Mg PO DAILY@1700 Start on 03/02/22 Cefdinir 300 Mg Capsule 300 Mg PO BID Reported Metoprolol Tartrate 100 Mg Tablet 100 Mg PO BID Ibuprofen 200 Mg Tablet 400 Mg PO Q8H PRN TAKES 2 (200MG) TABS Tylenol Extra Strength (Acetaminophen) 500 Mg Tablet 1,000 Mg PO Q8H PRN TAKES 2 (500MG) TABS Assessment/Pt DC Instructions Follow up with primary physician within a week of discharge. Discharge Diet: No Restrictions Activity as Tolerated: Yes Discharge Physical Examination Allergies: Coded Allergies: No Known Drug Allergies (Unverified , 09/01/14) General Appearance: No Apparent Distress, WD/WN, Anxious Respiratory: Lungs Clear, Normal Breath Sounds, No Accessory Muscle Use Cardiovascular: Regular Rate, Rhythm, No Murmur Gastrointestinal: Normal Bowel Sounds Skin: Normal Color, Warm/Dry Neurologic/Psychiatric: Alert, Normal Mood/Affect FELIPE LOUISE MD Feb 09, 2022 13:17
[2022-02-09 15:09] VITALS: BP 128/92
[2022-03-02] MEDS ORDERED: RIVAROXABAN 20 MG TABLET (XARELTO) PO SCH (17:00)
== END 2022-02-09 15:50 | disposition home or self-care (01) | DRG 175 ==
LOC: EDUNIT# 15:43 → ER FS 15:45 → ICU 19:58 → 4TH 02-06 18:15
PROVIDERS: ADMIT Family Medicine; ATTEND Family Medicine
DX: I26.99 Other pulmonary embolism without acute cor pulmonale (principal); J11.00 Influenza due to unidentified influenza virus with unspecified type of pneumonia; J90 Pleural effusion, not elsewhere classified; K52.1 Toxic gastroenteritis and colitis; Z79.899 Other long term (current) drug therapy; I10 Essential (primary) hypertension; R00.0 Tachycardia, unspecified; R13.10 Dysphagia, unspecified; T36.95XA Adverse effect of unspecified systemic antibiotic, initial encounter
CPT/HCPCS: 36410; 36415; 71046; 71275; 76937; 80053; 80202; 81000; 82805; 83605; 83735; 84100; 84145; 84484; 85007; 85025; 85027; 85379; 86141; 87040; 87081; 87088; 94640; 94760; 94761; Q9967

== ENCOUNTER → 2022-02-21 | Outpatient (CLI) | payer SELFPAY ==
[~2022-02-21] MED LIST changes: +ACET-2267 PO; +ALBU8.5H6 INH; +CEFD300C3 PO; +IBUP-2473 PO; +IPRA3AMP31 IH; +METO100T12 PO; +RIVA15TA2 PO; +RIVA20TA2 PO
--- NOTE | 2022-02-21 10:45 | Diagnostic Imaging Report ---
INDICATION: Followup pneumonia. COMPARISON: 02/05/2022. FINDINGS: Frontal and lateral radiographic views of the chest were obtained and show markedly interval improved aeration of both upper lungs. There are some residual linear and patchy airspace opacities, right greater than left. Note is also made of a small right pleural effusion. There is no large effusion on the left. No pneumothorax is seen on either side. The cardiac silhouette and pulmonary vasculature are within normal limits. The osseous structures show no gross acute abnormalities. IMPRESSION: 1. Marked interval improved aeration. Mild residual airspace opacities persists. Continued followup is advised. 2. Small right pleural effusion. Dictated by: Dictated on workstation # [id number]
== END ==
LOC: RAD FS 10:04
PROVIDERS: ATTEND Nurse Practitioner
DX: J18.9 Pneumonia, unspecified organism (principal); J90 Pleural effusion, not elsewhere classified
CPT/HCPCS: 71046